=== PATIENT | female | born 1960 | race Hispanic/Latino ===

== ENCOUNTER → 2018-05-16 | Outpatient (CLI) | payer MEDICARE | END | disposition home or self-care (01) | LOC: RAH 15:17 | PROVIDERS: ATTEND Family Medicine | DX: Z12.31 Encounter for screening mammogram for malignant neoplasm of breast (principal) | CPT/HCPCS: 77067 ==

== ENCOUNTER → 2020-06-01 | Outpatient (CLI) | payer MEDICARE | END | disposition home or self-care (01) | LOC: RAH 11:37 | PROVIDERS: ATTEND Family Medicine | DX: Z12.31 Encounter for screening mammogram for malignant neoplasm of breast (principal) | CPT/HCPCS: 77067 ==

== ENCOUNTER 2025-03-04 23:25 | Emergency (ER) | payer OTHER ==
[~2025-03-04] VITALS: Ht 154.9 cm; Wt 58.5 kg
[2025-03-05] MEDS: CYCLOBENZAPRINE HCL 10 MG TABLET PO ONE (00:35)
--- NOTE | 2025-03-05 01:01 | ERN ---
ED Note History of Present Illness Stated Complaint: C/O BACK PAIN AFTER FALL ON 02/10/2025 Chief Complaint: Back Pain or Injury Time Seen by MD: 23:27 Time Seen by Midlevel: 23:27 Dictation: The patient is a 64-year-old female with a history of scoliosis who presents to the emergency department with complaints of upper back pain after a fall on February 10. patient reports she tripped on a wooden floor. Patient denies any LOC. no use of blood thinners. Reports she did not seek any medical help the day of the fall but has seen his primary doctor on two occasions for this problem but reports he has not obtained any imaging. Patient denies any paresthesia. Allergies: Coded Allergies: No Allergy Information Available (Verified Allergy, 03/24/12) Past Medical History Past Medical History: Other Additional Past Medical Hx: HX OF SCOLIOSIS Surgical History: Unknown RN Note Reviewed/Agreed w/PFSH: Yes Review of System Dictation Constitutional: Negative for fever,chills, and weight loss Eyes: Negative for injury, pain,redness, and discharge ENT: Negative for injury,pain or swelling Cardiovascular: Negative for chest pain, palpitations, and edema Respiratory: Negative for shortness of breath, cough, and wheezing, Abdomen/GI: Negative for abdominal pain, nausea, vomiting, diarrhea, and constipation Back: Negative for injury and pain : Negative for injury, bleeding and discharge MS/Extremity: Positive for upper back pain Skin: Negative for rash, and discoloration Neuro: Negative for headache, weakness, numbness, tingling, and seizure Psych: Negative for suicide ideation, homicidal ideation, and hallucinations Initial Vital Sign VS Vital Signs Date Time Temp Pulse Resp B/P (MAP) Pulse Ox O2 Delivery O2 Flow Rate FiO2 03/04/25 23:27 97.9 87 20 153/88 100 Room Air 03/05/25 01:26 0 21 Physical Exam Dictation Vital Signs reviewed General Appearance: Alert, oriented x 3, no acute distress, well developed, nourished. Head and Face: non-traumatic. Eyes: PERRL, pink conjunctivas, eyelid no trauma, anterior chamber with arcus senilis. Ears: Pinnas intact and no signs of trauma or erythema ear canals clear and no discharge TM no erythema Nose: No discharge, no bleeding. Oropharynx: Mouth normal, tongue pink. pharynx clear,no erythema, tonsils no exudates, no abscesses noted, mucous membrane moist Neck: Supple, non-tender, no thyromegaly, no masses, no JVD, no bruits Breast:Deferred Chest:No tenderness, no crepitus, no paradoxical movement, no retractions Lungs:Clear, well-ventilated, symmetric, no rales, no wheezing, no rhonchi, no stridor, good breath sounds bilaterally Heart: Regular rate, regular rhythm, no murmur, no gallops Vascular: no peripheral edema, Abdomen: Soft, positive bowel sounds, nondistended, no guarding, nontender, no rebound, no masses no hepatomegaly, no splenomegaly, no Mac's sign, no hernias. Rectal: Deferred Genital: Deferred Neurological: Normal speech, motor function intact, sensory function intact Musculoskeletal: Neck nontender, full range of motion, back nontender, full range of motion, Extremities: nontender, full range of motion Skin: Color pink, dry, no turgor, no rash, no lacerations, no abrasions, no contusions. Lymphatic: Deferred Results (Laboratory/Radiology) Labs Reviewed?: Yes ED Course ED Course Orders Procedure Category Date Status Time Cyclobenzaprine Hcl PHA 03/05/25 Complete (Cyclobenzaprine Hcl 00:00 Thoracic Spine 3vws RAD 03/05/25 Taken 00:01 Chest 1vw RAD 03/05/25 Taken 00:01 Current Medications Medications (Trade) Dose Ordered Sig/Amber Route PRN Reason Start Time Stop Time Status Last Admin Dose Admin Cyclobenzaprine HCl (Cyclobenzaprine HCl) 10 mg ONCE ONCE PO 03/05/25 00:00 03/05/25 00:01 DC 03/05/25 00:35 Vital Signs Date Time Temp Pulse Resp B/P (MAP) Pulse Ox O2 Delivery O2 Flow Rate FiO2 03/05/25 01:26 98.1 91 20 155/86 99 Room Air* 0 21 03/04/25 23:27 97.9 87 20 153/88 100 Room Air Medical Decision Making MDM The patient is a 64-year-old female with a history of scoliosis who presents to the emergency department with complaints of upper back pain after a fall on February 10. patient reports she tripped on a wooden floor. Patient denies any LOC. no use of blood thinners. Reports she did not seek any medical help the day of the fall but has seen his primary doctor on two occasions for this problem but reports he has not obtained any imaging. Patient denies any paresthesia. No obvious fractures or dislocations seen on x-ray. On physical exam patient is in no acute distress, nontoxic appearance, neurovascularly intact. Patient will be discharged to follow up with PCP. Differential diagnosis: Back strain, thoracic fracture, musculoskeletal pain Need for hospitalization: Patient does not meet criteria for hospitalization. There are no social concerns with this patient. DX & DISP Disposition: Discharge Departure Impression: Primary Impression: Upper back pain Condition: Stable Scripts Cyclobenzaprine HCl (Cyclobenzaprine HCl) 5 Mg Tablet 1 TAB PO TIDP PRN for muscle spasms for 10 Days, #30 TAB 0 Refills Prov: THEA ASIF 03/05/25 Additional Instructions: Please follow up with your primary doctor in 1-2 days. Take your medications as prescribed. If anything worsens please return to ER. FOLLOW-UP WITH PRIMARY CARE PROVIDER IN 1 TO 2 DAYS. TAKE MEDICATIONS DIRECTED HERE IN THE EMERGENCY ROOM. OKAY TO CONTINUE HOME MEDICATIONS UNLESS OTHERWISE DISCUSSED DURING YOUR VISIT IN THE EMERGENCY ROOM TODAY. RETURN TO YOUR NEAREST EMERGENCY ROOM IF SYMPTOMS WORSEN OR IF THERE IS NO IMPROVEMENT. CALL 911 IF YOU NEED IMMEDIATE ASSISTANCE. TAKE TYLENOL [id number] NEEDED AND IF NO CONTRAINDICATIONS ARE PRESENT. INCREASE ORAL HYDRATION. A WOUND CULTURE OR URINE CULTURE WAS ORDERED HERE IN THE EMERGENCY ROOM DEPARTMENT PLEASE FOLLOW-UP WITH PRIMARY CARE PROVIDER AND ADVISE THEM TO GET REPEAT PORTS FROM OUR FACILITY. IF YOU HAD ANY CHICO WRAP/SPLINTS THAT WERE APPLIED HERE, PLEASE DO NOT REMOVE THEM UNTIL YOU SEE YOUR PRIMARY CARE OR SPECIALTY. Referrals: TAL PICKETT MD (PCP) Time of Disposition: 02:42 I have reviewed the case, and I agree with, Diagnosis and Plan THEA ASIF Mar 05, 2025 01:01
[2025-03-05] MEDS ORDERED: CYCL5TAB3 PO (02:43)
[2025-03-05 02:52] VITALS: BP 148/80; PULSE 87; RESP 18; TEMP 98.1; O2SAT 99
--- NOTE | 2025-03-05 02:59 | HMCIMG ---
EXAM: CR Thoracic Spine, 3 views. CLINICAL HISTORY: Back pain. COMPARISON: None provided. FINDINGS: Mild levoscoliosis of the thoracic spine. Mild thoracic spondylosis is evident by tiny marginal osteophytes at multiple levels. Normal intervertebral disc spaces. Normal vertebral body heights. No acute fracture. Soft tissues are within normal limits. IMPRESSION: No acute bony abnormality is evident. Mild levoscoliosis of the thoracic spine. Mild thoracic spondylosis. /[place]
--- NOTE | 2025-03-05 03:01 | HMCIMG ---
EXAM: CR Chest, 1 view CLINICAL HISTORY: Back pain. COMPARISON: Chest radiograph dated 12/03/2013. FINDINGS: The lungs show no infiltrates or other acute findings. No pleural effusion or pneumothorax. The cardiomediastinal silhouette is within normal limits. No acute osseous abnormality. Mild levoscoliosis and thoracic spondylosis. Surgical clips in the right upper quadrant of the abdomen. IMPRESSION: No acute cardiopulmonary process is evident. No interval changes. /[place]
== END 2025-03-05 03:02 | disposition home or self-care (01) ==
LOC: EDH 23:25
DX: M54.6 Pain in thoracic spine (principal); M41.9 Scoliosis, unspecified
CPT/HCPCS: 71045; 72072; 99284